=== PATIENT | female | born 1990 | race Caucasian/White ===

== ENCOUNTER 2021-07-07 04:29 | Day surgery (SDC) | payer OTHER ==
[2021-07-06 11:19] VITALS: BMI 24.7
[2021-07-07] MEDS ORDERED: MIDAZOLAM HCL 2 MG/2 ML SINGLE DOSE VIAL ONE (07:40)
[2021-07-07] MEDS ORDERED: PROPOFOL 20 ML ONE ×3 (07:40)
[2021-07-07] MEDS ORDERED: SUCCINYLCHOLINE CHLORIDE 200 MG/10 ML SYRINGE ONE (07:40)
[2021-07-07] MEDS ORDERED: ONDANSETRON 4 MG/2 ML VIAL IVPUSH PRN ×2 (07:53→08:36)
[2021-07-07] MEDS ORDERED: oxyCODONE HCL 5 MG TABLET PO PRN ×2 (07:53→08:36)
[2021-07-07] MEDS ORDERED: IBUPROFEN 800 MG/8 ML IJ IVPB PRN (07:53)
[2021-07-07] MEDS ORDERED: IBUPROFEN 600 MG TABLET (FP) PO PRN (07:53)
[2021-07-07] MEDS ORDERED: ELECTROLYTE-148 SOLN 1,000 ML IV SCH (08:00)
[2021-07-07] MEDS ORDERED: ACETAMINOPHEN 1000 MG/100 ML BAG IVPB ONE (08:36)
[2021-07-07 10:48] VITALS: BP 112/62; PULSE 58; TEMP 97.5
[2021-07-07] MEDS ORDERED: ACETAMINOPHEN 325 MG TABLET (FP) ONE (10:56)
[2021-07-07] MEDS ORDERED: ACETAMINOPHEN 325 MG TABLET (FP) PO ONE (11:20)
== END 2021-07-07 11:40 | disposition home or self-care (01) ==
LOC: JASU-SURG 04:29
PROVIDERS: ATTEND Obstetrics & Gynecology
PROC: 0UBC7ZX Excision of Cervix, Via Natural or Artificial Opening, Diagnostic (ICD-10-PCS; principal; 2021-07-07 07:30)
DX: N87.9 Dysplasia of cervix uteri, unspecified (principal)
CPT/HCPCS: 81025; 88305-TC; 88307-TC; 94760